=== PATIENT | female | born 2000 | race Caucasian/White ===

== ENCOUNTER 2020-05-11 02:51 | Emergency (ER) | payer MEDICAID, OTHER ==
[~2020-05-11] VITALS: Ht 172.7 cm; Wt 130.0 kg
--- NOTE | 2020-05-11 03:16 | NUR ---
PT STATES HAVING HEADACHE 2 DAYS AGO AND WENT AWAY AND CAME BACK TONIGHT. STATES PAIN IS INTERMITTENT. PT STATES N/V WENT TRYING TO DRINK FLUIDS, AND WAS NOT ABLE TO GET UCH FLUIDS IN TODAY. ERP AT BEDSIDE, PLACED ON CONTINUOUS PULSE OX AND BP.
[2020-05-11] MEDS ORDERED: KETOROLAC 30 MG/1 ML IVPush ONE (03:30)
[2020-05-11] MEDS ORDERED: PROCHLORPERAZINE 5 MG/ML, 2ML IVPush ONE (03:30)
[2020-05-11] MEDS ORDERED: DIPHENHYDRAMINE 50 MG/ML, 1ML IVPush ONE (03:30)
[2020-05-11] MEDS ORDERED: SODIUM CHLORIDE 0.9% 1,000ML IVBOLUS ONE (03:30)
[2020-05-11] MEDS ORDERED: SODIUM CHLORIDE FLUSH 10ML SYR IVF ONE (03:30)
[2020-05-11] MEDS ORDERED: PROCHLORPERAZINE 5 MG/ML, 2ML ONE (03:32)
[2020-05-11] MEDS ORDERED: DIPHENHYDRAMINE 50 MG/ML, 1ML ONE (03:33)
[2020-05-11] MEDS ORDERED: KETOROLAC 30 MG/1 ML ONE (03:33)
--- NOTE | 2020-05-11 03:57 | NUR ---
PT REFUSING MEDS AT THIS TIME. ERP UPDATES, TALKED WITH PT, AND PT STATES SHE "WILL THINK ABOUT IT". WILL FOLLOW UP
[2020-05-11 04:13] LABS: BASOPHILS % (AUTO) 0 % (0-1); EOSINOPHILS % (AUTO) 2 % (1-7); LYMPHOCYTES % (AUTO) 21 % (22-44); MEAN CORPUSCULAR HEMOGLOBIN 29.1 pg (27.0-34.8); MEAN CORPUSCULAR HGB CONC 33.3 g/dL (32.4-35.8); MEAN PLATELET VOLUME 7.6 fL (7.4-10.4); MONOCYTES % (AUTO) 6 % (2-9); NEUTROPHILS % (AUTO) 71 % (42-75); PLATELET COUNT 361 x10^3/uL (130-400); RED BLOOD COUNT 5.15 x10^6/uL (3.82-5.3); RED CELL DISTRIBUTION WIDTH 12.9 % (9.6-15.2)
[2020-05-11 04:14] LABS: MD NO
--- NOTE | 2020-05-11 04:25 | NUR ---
pt still refusing meds at this time. states feeling better with fluids.
[2020-05-11 04:26] LABS: ALBUMIN 3.7 g/dL (3.4-5.0); ANION GAP 4 mmol/L (5-15); CALCIUM 9.4 mg/dL (8.5-10.1); CHLORIDE 107 mmol/L (98-107); CREATININE 0.84 mg/dL (0.55-1.02)
--- NOTE | 2020-05-11 05:02 | NUR ---
Patient given discharge instructions and they have confirmed that they understand the instructions. Patient ambulatory with steady gait.
[2020-05-11 05:04] VITALS: BP 141/82
== END 2020-05-11 05:06 | disposition home or self-care (01) ==
LOC: ED 04:04
DX: G44.219 Episodic tension-type headache, not intractable (principal); R11.0 Nausea; E66.9 Obesity, unspecified
CPT/HCPCS: 36415; 80048; 82040; 84703; 85025; 96360; 99283; J7030